=== PATIENT | male | born 1945 | race African-American/Black ===

== ENCOUNTER 2023-07-08 10:58 | Emergency (ER) | payer OTHER, SELFPAY ==
[2023-07-08] VITALS (8 sets, daily range): BP systolic 140–161; BP diastolic 82–101; PULSE 85–110; RESP 18–20; TEMP 36.7; O2SAT 97–100; BMI 22.1
--- NOTE | 2023-07-08 11:03 | ED_ITS ---
HPI - General Adult General Chief complaint: Behavioral Concerns Stated complaint: COMBATIVE AT MD, SECT 12 Time Seen by Provider: 07/08/23 11:03 Source: patient and EMS Mode of arrival: EMS Limitations: no limitations History of Present Illness HPI narrative: Patient is a 78 year old assigned male at with a history of adjustment disorder, MDD, and HF presenting to the emergency department today with aggression. Patient states that he got mad at the detention staff and he got sent here. intermediate staff states that the patient was making aggressive statements and doing aggressive physical actions. intermediate staff states that they found a knife in the patient's belongings and have confiscated it. Patient denies any dizziness, lightheadedness, abdominal pain, nausea, vomiting, fever, chills, blurry vision, double vision, loss of vision, chest pain, difficulty breathing, shortness of breath, back pain, night sweats, pain with urination, increased urinary frequency, increased urinary urgency, blood in his urine or stool, syncope or a near syncopal episode, recent trauma or falls, bowel incontinence, bladder incontinence, bowel retention, bladder retention, or any other complaints at this time. Relieving factors: none Exacerbating factors: none Associated symptoms: denies other symptoms Treatments prior to arrival: none Related Data Allergies Allergy/AdvReac Type Severity Reaction Status Date / Time No Known Allergies Allergy Verified 07/08/23 11:08 Review of Systems 2 Constitutional: Constitutional: Reports no additional constitutional complaints, Denies chills, Denies fever(s) and Denies night sweats Eyes: Eyes: Reports no additional eye complaints, Denies blurry vision, Denies change in vision, Denies diplopia, Denies eye discharge, Denies loss of vision and Denies eye pain ENT: Denies dizziness Cardiovascular: Cardiovascular: Reports no additional cardiovascular complaints, Denies chest pain, Denies lightheadedness, Denies Loss of Consciousness and Denies dyspnea Respiratory: Respiratory: Reports no additional respiratory complaints and Denies dyspnea Gastrointestinal: Gastrointestinal: Reports no additional gastrointestinal complaints, Denies abdominal pain, Denies melena, Denies hematochezia, Denies change in bowel habits and Denies change in stool character Genitourinary: Genitourinary: Reports no additional male genitourinary complaints, Denies hematuria, Denies oliguria, Denies difficulty urinating, Denies dysuria, Denies urinary frequency, Denies urinary hesitancy, Denies urinary incontinence and Denies urinary urgency Musculoskeletal: Musculoskeletal: Reports no additional musculoskeletal complaints, Denies numbness and Denies tingling Neurologic: Denies dizziness, Denies loss of vision, Denies numbness and Denies tingling Psychiatric: Psychiatric: Reports no additional psychiatric complaints Endocrine: Endocrine: Reports no additional endocrine complaints Hematologic/Lymphatic: Hematologic/Lymphatic: Reports no additional hematologic/lymphatic complaints Allergic/Immunologic: Allergic/Immunologic: Reports no additional allergic/immunologic complaints [facility] Past Medical History Attestation statement: The following information was validated with the patient. (all information validated with detention staff) Source: old records reviewed and nursing notes reviewed Medical History Personal history of other endocrine, nutritional and metabolic disease Displaced fracture of distal phalanx of right thumb, subsequent encounter for fracture with routine healing Difficulty in walking, not elsewhere classified Dysphagia, oral phase Muscle weakness (generalized) Chronic atrial fibrillation, unspecified Anemia, unspecified rodent exterminator (current) use of anticoagulants Cachexia Unspecified systolic (congestive) heart failure Insomnia, unspecified 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 Major depressive disorder, recurrent, unspecified Other fracture of left femur, subsequent encounter for closed fracture with routine healing Social History Social History Unable to assess alcohol history related to: Unknown Smoked in Last 30 Days: No Use of substances other than those prescribed or required for medical reasons: Unknown Advance Directives: Yes Advance Directives on File: No Physical Exam ED Vital Signs: Vital Signs - 24 hr 07/08/23 11:10 07/08/23 11:22 07/08/23 11:36 Temperature 98.1 F Pulse Rate 85 102 H Respiratory Rate 18 18 20 Blood Pressure 161/101 H 150/93 H Pulse Oximetry 97 98 Oxygen Delivery Method Room Air Room Air Room Air 07/08/23 12:17 07/08/23 14:12 Temperature Pulse Rate 86 87 Respiratory Rate 20 20 Blood Pressure 154/93 H 149/82 H Pulse Oximetry 99 100 Oxygen Delivery Method Room Air Room Air BMI result Body Mass Index 22.1 Const General: cooperative, no acute distress, alert and awake Nutritional Appearance: well nourished Orientation/consciousness: patient oriented x3 Limitations: no limitations HENMT Head: Yes normal to inspection and Yes atraumatic Ears: hearing grossly normal bilaterally and external ears normal General nose exam: Normal external nose present, no nasal discharge noted and no epistaxis Face and sinus: Yes normal facial exam, No abrasion and No laceration Mouth: Normal oral and palatal mucosa present, no drooling and no muffled voice Eyes General: appearance normal, both eyes and all related structures Periorbital: periorbital findings normal Eyelids: Yes eyelids normal Conjunctivae: conjunctivae normal Pupils: Equal, round and reactive pupils present EOM: EOMs intact bilaterally Neck Neck: Yes normal visual inspection, Yes full ROM and Yes no lymphadenopathy Chest Chest palpation & inspection: normal inspection of the chest Resp Effort & Inspection: normal respiratory effort and able to speak in complete sentences GI Inspection: Yes normal to inspection Neuro General: patient oriented x3 and moves all extremities Cranial nerves: Yes Equal, round and reactive pupils present Cognition (Neuro): normal cognition Motor exam (neuro): 5/5 motor strength present throughout Sensory Exam: Normal double simultaneous stimulation for sensation Coordination: [id number] test normal Extrem General: Yes normal to inspection, Yes full ROM and Yes capillary refill normal Psych Appearance: grossly normal Mental Status: mental status grossly normal Affect: Labile affect present Attitude: cooperative Thought process: Confabulating thought process present Thought content: Normal thought content present Medical Decision Making Medical Decision Making MDM Narrative: Patient is a 78 year old assigned male at with a history of MDD, adjustment disorder, anemia, HF, and atrial fib presenting to the emergency department today with reported aggression. Patient's physical exam was unremarkable. Patient's blood work was unremarkable. Patient's urine showed no acute process. I explained my physical exam findings as well as all test results to the patient. I answered all questions asked by the patient. Patient is medically cleared at this time. Patient is awaiting CARE team evaluation. Differential Diagnosis Differential Diagnoses: The differential diagnosis associated with the presentation includes Aggressive outburst Admission/Observation Consideration of admission/observation: Escalation of care including admission/observation considered Patient's disposition will be determined after CARE team evaluation. Lab Data MDM Lab Attestation statement: I reviewed the patient's lab results. My interpretation of these studies and their corresponding values is that they are grossly normal. 07/08/23 11:46 07/08/23 11:46 Labs: Lab Results 07/08/23 07/08/23 Range/Units 11:40 11:46 WBC 4.9 (4.8-10.8) X10*3/uL RBC 5.18 (4.60-5.80) X10*6/uL Hgb 13.3 L (14.0-18.0) g/dl Hct 40.1 L (42.0-52.0) % MCV 77.4 L (80.0-98.0) fL MCH 25.7 L (27.0-33.0) pg MCHC 33.2 (31.0-36.0) g/dl RDW 13.3 (11.0-16.0) % Plt Count 193 (160-400) X10*3/uL MPV 10.4 (9.4-12.4) fL Immature Gran % (Auto) 0.0 (0.0-0.4) % Neut % (Auto) 60.1 (45-73) % Lymph % (Auto) 25.4 (20-40) % [place] % (Auto) 12.0 H (2-11) % Eos % (Auto) 2.3 (0-4) % Baso % (Auto) 0.2 (0-2) % Lymph # (Auto) 1.2 (1.2-4.9) X10*3/uL [place] # (Auto) 0.6 (0.1-1.2) X10*3/uL Eos # (Auto) 0.1 (0.0-0.4) X10*3/uL Baso # (Auto) 0.0 (0.0-0.2) X10*3/uL Abs Immat Gran (auto) 0.00 (0.00-0.03) X10*3/uL Absolute Neuts (auto) 2.9 (2.0-8.3) x10*3/uL Absolute Nucleated RBC 0.000 (0.0-0.012) X10*3/uL Nucleated RBC % (auto) 0.0 (0.0-0.2) /100WBC Sodium 138 (135-145) mmol/L Potassium 3.8 (3.3-5.1) mmol/L Chloride 106 (96-108) mmol/L Carbon Dioxide 25 (22-29) mmol/L Anion Gap 11 L (12-20) BUN 13 (9-16) mg/dL Creatinine 0.82 (0.5-1.4) mg/dL Estim Creat Clear Calc 68.1 Estimated GFR > 60 Random Glucose 99 (60-115) mg/dL Calcium 9.2 (8.4-10.2) mg/dL Total Bilirubin 0.4 (0.0-1.0) mg/dL AST 19 (5-37) U/L ALT 10 (0-40) U/L Alkaline Phosphatase 95 (39-117) U/L Total Protein 7.4 (6.5-8.0) g/dL Albumin 3.9 (3.5-5.0) g/dL Urine Color Yellow Urine Appearance Clear Urine pH 6.0 (5.0-9.0) Ur Specific [place] 1.010 (1.005-1.025) Urine Protein Negative (Neg-Trace) mg/dL Urine Glucose (UA) Negative (Negative) mg/dL Urine Ketones Negative (Negative) mg/dL Urine Blood Negative (Negative) Urine Nitrite Negative (Negative) Ur Leukocyte Esterase Negative (Negative) Salicylates < 5.0 L (15-30) mg/dL Urine Opiates Screen Not Detected (Not Detect) Urine Fentanyl Screen Not Detected (Not Detect) Acetaminophen < 3 (<30) mcg/mL Ur Barbiturates Screen Not Detected (Not Detect) Ur Phencyclidine Scrn Not Detected (Not Detect) Ur Amphetamines Screen Not Detected (Not Detect) U Benzodiazepines Scrn Not Detected (Not Detect) Urine Cocaine Screen Not Detected (Not Detect) U Marijuana (THC) Screen Not Detected (Not Detect) Ethyl Alcohol < 10 mg/dL COVID-19 (ANDREZ) Negative (Negative) COVID-19 Clin Com See Note Independent Historian Clinical information obtained from an independent historian. History obtained from or confirmed by: EMS (EMS provided additional history and confirmed the history provided by the patient.) and Other (intermediate staff provided additional history and confirmed the history provided by the patient and EMS.) Critical Care Time Critical Care Time Critical Care Time: Yes Total Critical Care Time: 40 Attestation: I spent 40 minutes of Critical Care Time with this patient. This does not include time spent on separately reported billable procedures. Discharge Plan Discharge Clinical Impression: Aggressive behavior Patient Disposition: Still a Patient
--- NOTE | 2023-07-08 11:28 | PC.NURSE ---
security came to bedside - no weapons noted. hat checked for sharps- no sharps anywhere. no distress. cooperative. no halluc/delusions noted. no si/hi/sib.
[2023-07-08 11:56] LABS: MANUAL DIFF FLAG NO
[2023-07-08 11:57] LABS: Basophils Percent Auto 0.2 % (0-2); Eosinophils Absolute Auto 0.1 X10*3/uL (0.0-0.4); Eosinophils Percent Auto 2.3 % (0-4); Hematocrit 40.1 % (42.0-52.0); Hemoglobin 13.3 g/dl (14.0-18.0); Lymphocytes Absolute Auto 1.2 X10*3/uL (1.2-4.9); Lymphocytes Percent Auto 25.4 % (20-40); Mean Corpuscular HGB Conc 33.2 g/dl (31.0-36.0); Mean Corpuscular Hemoglobin 25.7 pg (27.0-33.0); Mean Corpuscular Volume 77.4 fL (80.0-98.0); Mean Platelet Volume 10.4 fL (9.4-12.4); Monocytes Absolute Auto 0.6 X10*3/uL (0.1-1.2); Neutrophils Absolute Auto 2.9 x10*3/uL (2.0-8.3); Neutrophils Percent Auto 60.1 % (45-73); Platelet Count 193 X10*3/uL (160-400); Red Blood Count 5.18 X10*6/uL (4.60-5.80); Red Cell Distribution Width 13.3 % (11.0-16.0); White Blood Count 4.9 X10*3/uL (4.8-10.8)
[2023-07-08 11:59] LABS: Appearance Urine Clear; Color Urine Yellow; Glucose Urine UA Negative (Negative); Leukocyte Esterase Urine Negative (Negative); Nitrite Urine Negative (Negative); Urine Blood Negative (Negative); Urine Ketones Negative (Negative); Urine Protein Negative (Neg-Trace)
[2023-07-08 12:07] LABS: Amphetamine Screen Urine Not Detected (Not Detect); Barbiturates, Urine Not Detected (Not Detect); Benzodiazepines Screen Urine Not Detected (Not Detect); Cannabinoid Screen Urine Not Detected (Not Detect); Cocaine Screen Urine Not Detected (Not Detect); Fentanyl, urine Not Detected (Not Detect); Opiate Screen Urine Not Detected (Not Detect); Phencyclidine Screen Urine Not Detected (Not Detect)
[2023-07-08 12:13] LABS: COVID-19 Test Negative (Negative); IDNOW Serial# BCCEAD1C
[2023-07-08 12:18] LABS: Acetaminophen LAB < 3 mcg/mL (<30); Alanine Aminotransferase 10 U/L (0-40); Albumin Level 3.9 g/dL (3.5-5.0); Alkaline Phosphatase 95 U/L (39-117); Anion Gap 11 (12-20); Aspartate Amino Transferase 19 U/L (5-37); Bilirubin Total 0.4 mg/dL (0.0-1.0); Blood Urea Nitrogen 13 mg/dL (9-16); Calcium 9.2 mg/dL (8.4-10.2); Carbon Dioxide 25 mmol/L (22-29); Chloride 106 mmol/L (96-108); Creatinine Clr Calc Pharmacy 68.1; Estimated Glomerular Filt Rate > 60; Ethanol < 10 mg/dL; Glucose Random 99 mg/dL (60-115); Potassium 3.8 mmol/L (3.3-5.1); Salicylate < 5.0 mg/dL (15-30); Sodium 138 mmol/L (135-145); Total Protein 7.4 g/dL (6.5-8.0)
--- NOTE | 2023-07-08 16:00 | PC.NURSE ---
watching tv. no distress. no si/hi
--- NOTE | 2023-07-08 17:52 | MHC.CARE ---
Pt was evaluated by CARE Team and cleared medically and psychiatrically. Care team notified Rehab facility who also notified DON that pt can return however DON reportedly has concerns with him being discharged. CARE waiting phone call
--- NOTE | 2023-07-08 18:01 | PC.NURSE ---
continues to deny si/hi/sib. eating dinner well. no distress. denies pain.
--- NOTE | 2023-07-08 19:51 | PC.NURSE ---
called senior care to ask about last doses of meds and to confirm meds
--- NOTE | 2023-07-08 20:21 | PC.NURSE ---
client frequently chatty, talking to staff frequently.
--- NOTE | 2023-07-08 20:40 | PC.NURSE ---
Med Rec completed at this time
--- NOTE | 2023-07-08 21:18 | PC.NURSE ---
belongings in locker number 1
--- NOTE | 2023-07-09 03:52 | PC.NURSE ---
client doesnt seem to have a concept of social context, loud and difficult to redirect asking to head home at [phone].
--- NOTE | 2023-07-09 03:55 | PC.NURSE ---
patient making loud, demanding, racially charged statements about the place he came from. Joselyn diaz...shouldnt be telling me what to do
[2023-07-09 06:23] VITALS: BP 134/81; PULSE 87; RESP 17; TEMP 36.6; O2SAT 98
--- NOTE | 2023-07-09 08:15 | PC.NURSE ---
call placed to [facility] regarding taking pt back to their facility.
--- NOTE | 2023-07-09 08:37 | PC.NURSE ---
plan for pt to return to [facility], [facility] made aware to book transport
[2023-07-09] MEDS: Escitalopram Oxalate 5 MG TABLET PO (10:18)
[2023-07-09] MEDS: Metoprolol Tartrate 25 MG TABLET PO (10:18)
[2023-07-09] MEDS: Furosemide 20 MG TABLET PO (10:19)
[2023-07-09] MEDS: methIMAzole 5 MG TABLET PO (11:19)
[2023-07-09] MEDS: methIMAzole 10 MG TABLET PO (11:19)
[2023-07-09] MEDS: Cholecalciferol (Vitamin D3) 25 MCG TABLET PO (11:19)
[2023-07-09] MEDS: Docusate Sodium 100 MG CAPSULE PO (11:19)
[2023-07-09] MEDS: Rivaroxaban 20 MG TABLET PO (11:24)
== END 2023-07-09 11:45 | disposition skilled nursing facility (03) ==
PROVIDERS: Physician Assistant Medical; Emergency Provider Emergency Medicine Emergency Medical Services; PCP Internal Medicine
DX: F33.1 Major depressive disorder, recurrent, moderate (principal); F91.9 Conduct disorder, unspecified; Z79.01 Long term (current) use of anticoagulants; Z11.52 Encounter for screening for COVID-19; Z20.822 Contact with and (suspected) exposure to COVID-19; Z79.899 Other long term (current) drug therapy
CPT/HCPCS: 80053; 80143; 80179; 80307; 81003; 85025; 87635; 99284; S9485

== ENCOUNTER 2023-12-18 10:41 | Emergency (ER) | payer OTHER, SELFPAY ==
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
--- NOTE | 2023-12-18 10:48 | ECG_ITS ---
Test Reason : medical clearance Blood Pressure : / mmHG Vent. Rate : 075 BPM Atrial Rate : 075 BPM P-R Int : 160 ms QRS Dur : 128 ms QT Int : 376 ms P-R-T Axes : 070 -28 066 degrees QTc Int : 419 ms Normal sinus rhythm Non-specific intra-ventricular conduction block Minimal voltage criteria for LVH, may be normal variant ( [place] product ) Cannot rule out Septal infarct , age undetermined Abnormal ECG No previous ECGs available Referred By: Frieda Townsend Electronically Signed By:Bruce Ramos
[2023-12-18 10:49] VITALS: BMI 22.0
[2023-12-18] MEDS: LORazepam 1 MG TABLET 2 MG PO (10:53)
[2023-12-18] MEDS: OLANZapine 5 MG TABLET PO (10:53)
[2023-12-18 10:56] VITALS: BP 144/70; PULSE 78; RESP 16; TEMP 36.5; O2SAT 97
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
[2023-12-18 11:09] LABS: MANUAL DIFF FLAG NO
[2023-12-18 11:10] LABS: Basophils Percent Auto 0.2 % (0-2); Eosinophils Absolute Auto 0.1 X10*3/uL (0.0-0.4); Eosinophils Percent Auto 1.6 % (0-4); Hematocrit 43.7 % (42.0-52.0); Hemoglobin 14.7 g/dl (14.0-18.0); Lymphocytes Absolute Auto 1.6 X10*3/uL (1.2-4.9); Lymphocytes Percent Auto 30.7 % (20-40); Mean Corpuscular HGB Conc 33.6 g/dl (31.0-36.0); Mean Corpuscular Hemoglobin 26.6 pg (27.0-33.0); Mean Platelet Volume 10.2 fL (9.4-12.4); Monocytes Absolute Auto 0.5 X10*3/uL (0.1-1.2); Monocytes Percent Auto 10.3 % (2-11); Neutrophils Percent Auto 57.2 % (45-73); Platelet Count 164 X10*3/uL (160-400); Red Blood Count 5.53 X10*6/uL (4.60-5.80); Red Cell Distribution Width 14.6 % (11.0-16.0); White Blood Count 5.2 X10*3/uL (4.8-10.8)
[2023-12-18 11:21] LABS: COVID-19 Test Negative (Negative); IDNOW Serial# 152EDE1D
[2023-12-18 11:32] LABS: Alanine Aminotransferase 13 U/L (0-40); Alkaline Phosphatase 90 U/L (39-117); Anion Gap 13 (12-20); Aspartate Amino Transferase 20 U/L (5-37); Bilirubin Total 0.6 mg/dL (0.0-1.0); Blood Urea Nitrogen 20 mg/dL (9-16); Calcium 9.5 mg/dL (8.4-10.2); Carbon Dioxide 27 mmol/L (22-29); Chloride 105 mmol/L (96-108); Creatinine Clr Calc Pharmacy 49.4; Estimated Glomerular Filt Rate > 60; Ethanol < 10 mg/dL; Glucose Random 88 mg/dL (60-115); Potassium 3.9 mmol/L (3.3-5.1); Sodium 141 mmol/L (135-145); Total Protein 7.8 g/dL (6.5-8.0)
[2023-12-18 11:34] LABS: Acetaminophen LAB < 3 mcg/mL (<30); Salicylate < 5.0 mg/dL (15-30)
--- NOTE | 2023-12-18 12:20 | PC.NURSE ---
pt ambulates to the restroom w/ a strong steady gait independently. no use of assistive devices needed. pt attempted to obtain UA but was unsuccessful as he did not urinate into the cup/urinal. will reattempt.
--- NOTE | 2023-12-18 13:00 | PC.NURSE ---
pt currently sleeping/in no apparent distress at this time. no sob/wob noted. respirations even and unlabored. call danielson placed within reach.
[2023-12-18 16:03] VITALS: BP 169/95; PULSE 64; RESP 19; TEMP 36.3; O2SAT 97
[2023-12-18 16:07] LABS: Appearance Urine Clear; Color Urine Yellow; Glucose Urine UA Negative (Negative); Leukocyte Esterase Urine Negative (Negative); Nitrite Urine Negative (Negative); Urine Blood Negative (Negative); Urine Ketones Negative (Negative); Urine Protein Negative (Neg-Trace)
--- NOTE | 2023-12-18 16:10 | PC.NURSE ---
pt speaking w/ hospitalist at this time. plan of care ongoing.
[2023-12-18 16:26] LABS: Amphetamine Screen Urine Not Detected (Not Detect); Barbiturates, Urine Not Detected (Not Detect); Benzodiazepines Screen Urine Not Detected (Not Detect); Buprenorphine Scr Not Detected (Not Detect); Cannabinoid Screen Urine Not Detected (Not Detect); Cocaine Screen Urine Not Detected (Not Detect); Fentanyl, urine Not Detected (Not Detect); Methadone Screen, Urine Not Detected (Not Detect); Opiate Screen Urine Not Detected (Not Detect); Oxycodone Screen Urine Not Detected (Not Detect); Phencyclidine Screen Urine Not Detected (Not Detect)
--- NOTE | 2023-12-18 17:41 | PC.NURSE ---
pt speaking w/ CARE team at this time. plan of care ongoing.
[2023-12-18 18:58] VITALS: BP 139/82; PULSE 76; RESP 18; TEMP 36.4; O2SAT 97
--- NOTE | 2023-12-18 19:35 | PC.NURSE ---
Spoke to staff at [facility]. Pt will be transported back via ambulance.
[2023-12-18 20:37] VITALS: BP 139/82; PULSE 76; RESP 18; TEMP 36.4; O2SAT 97
== END 2023-12-18 20:40 | disposition home or self-care (01) ==
PROVIDERS: Physician Assistant Medical; Emergency Provider Student in an Organized Health Care Education/Training Program; PCP Internal Medicine
DX: F43.24 Adjustment disorder with disturbance of conduct (principal); R45.6 Violent behavior; F33.9 Major depressive disorder, recurrent, unspecified; F15.20 Other stimulant dependence, uncomplicated; D64.9 Anemia, unspecified; F03.918 Unspecified dementia, unspecified severity, with other behavioral disturbance; F42.3 Hoarding disorder; I48.20 Chronic atrial fibrillation, unspecified; Z79.01 Long term (current) use of anticoagulants; Z11.52 Encounter for screening for COVID-19
CPT/HCPCS: 80053; 80143; 80179; 80307; 81003; 85025; 87635; 93005; 99285; S9485

== ENCOUNTER → 2023-12-18 10:48 | Outpatient (BNV) | payer OTHER, SELFPAY | PROVIDERS: Emergency Provider Student in an Organized Health Care Education/Training Program; PCP Internal Medicine; Visit Provider Internal Medicine Cardiovascular Disease | DX: R94.31 Abnormal electrocardiogram [ECG] [EKG] (principal) | CPT/HCPCS: 93010 ==

== ENCOUNTER 2023-12-20 09:45 | Emergency (ER) | payer OTHER, SELFPAY ==
[2023-12-20 10:09] VITALS: BP 142/92; PULSE 103; O2SAT 98; BMI 21.7
[2023-12-20 10:20] VITALS: BP 129/75; PULSE 97; RESP 13; TEMP 37; O2SAT 93
--- NOTE | 2023-12-20 10:22 | MHC.EDTECH ---
Patient was very wet with urine, all over his body. he got cleaned and changed. I put his clothes in the vehicle washer in the pod.
--- NOTE | 2023-12-20 11:33 | PC.NURSE ---
Patient has been calm and cooperative while in this ED. no urine needed at one done on Thursday and was negative. Attending is aware
[2023-12-20 12:06] VITALS: BP 131/78; PULSE 85; RESP 15; TEMP 36.8; O2SAT 98
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
[2023-12-20 13:00] VITALS: BP 145/109; PULSE 95; RESP 16; TEMP 36.6; O2SAT 98
[2023-12-20 14:25] VITALS: BP 140/78; PULSE 80; RESP 18; TEMP 36.8; O2SAT 98
== END 2023-12-20 14:26 | disposition home or self-care (01) ==
PROVIDERS: Emergency Provider Student in an Organized Health Care Education/Training Program; PCP Internal Medicine
DX: F91.9 Conduct disorder, unspecified (principal); Z79.899 Other long term (current) drug therapy
CPT/HCPCS: 99284